=== PATIENT | male | born 1990 | race Caucasian/White ===

== ENCOUNTER 2019-12-03 14:52 | Emergency (ER) | payer OTHER, SELFPAY ==
--- NOTE | ~2019-12-03 | XR_ITS ---
XR knee RT min 4V DATE: 12/03/2019 15:28 INDICATION: Medial right knee pain TECHNIQUE: 4 views COMPARISON: None FINDINGS: A crosstable lateral view is oblique and not optimally for evaluation of joint effusion. Nicholson prapatellar knee joint effusion is suspected. Repeat true lateral and crosstable lateral view is antonio mmended. No fracture or dislocation, periosteal reaction or bone destruction, radiopaque intra-articular loose body or chondrocalcinosis is detected. There is periarticular spurring of the patella and minimal periarticular spurring at the lateral comp artment. There is mild loss of height of medial compartment joint space. IMPRESSION: Recommend true lateral repeat crosstable lateral view for confirmation of suspected knee joint effusion and to evaluate for any lipohemarthrosis (fat/fluid level) Tricompartment osteoarthritis Reviewed, dictated and finalized at location A. IMPRESSION: Recommend true lateral repeat crosstable lateral view for confirmat ion of suspected knee joint effusion and to evaluate for any lipohemarthrosis ( fat/fluid level) Tricompartment osteoarthritis
[2019-12-03 15:02] VITALS: BP 159/85; PULSE 99; RESP 16; TEMP 36.8; O2SAT 97
--- NOTE | 2019-12-03 15:37 | ED.LOWEXIN ---
HPI - Extremity Injury (Lower) General Chief Complaint: Extremity Injury, Lower Stated Complaint: right knee injury Time Seen by Provider: 12/03/19 15:38 Source: patient and RN notes reviewed Mode of arrival: ambulatory Limitations: no limitations History of Present Illness HPI Narrative: 29-year-old male who presents to [facility] with complaints of pain to his right knee since Friday. Patient states that he was getting off of forklift at work and felt a twinge in his right knee. He states that his pain has progressively gotten worse and increases with weight bearing, states that his right knee feels like it is going to buckle. Patient states that he has no tingling or numbness to his right foot or leg, pulses to right foot of good quality. He reports pain is inferior anteriorly and medially right patella. MD complaint: knee injury Onset (ago): day(s) (4th day) Injury: Right: knee (right) Type of Injury: hyperflexion Place: work Severity: severe Severity scale (1-10): 4 Relieving factors: rest Exacerbating factors: weight bearing Context: other (getting off of a forklift) Associated symptoms: swelling and other (pain especially with weight bearing) Other symptoms: none Treatments prior to arrival: cold therapy and NSAIDS Related Data Home Medications Medication Instructions Recorded Confirmed No Home Medications 12/03/19 12/03/19 Allergies Allergy/AdvReac Type Severity Reaction Status Date / Time No Known Allergies Allergy Mild Verified 12/03/19 15:22 Review of Systems Review of Systems: Narrative: CONSTITUTIONAL: Denies fever, chills, or sweats. EYES: Denies visual changes, redness, or discharge. ENT: Denies rhinorrhea, congestion, sore throat, or otalgia. CARDIOVASCULAR: Denies chest pain, palpitations, or edema. RESPIRATORY: Denies cough or dyspnea. GASTROINTESTINAL: Denies abdominal pain, nausea, vomiting, or diarrhea. GENITOURINARY: Denies dysuria or hematuria. SKIN: Denies rash or itching. MUSCULOSKELETAL: Denies back pain,positive for right knee joint pain, or myalgia. NEUROLOGIC: Denies headache, numbness, or weakness. PSYCHIATRIC: Denies anxiety or depression. All systems reviewed & are unremarkable except as noted in HPI and below PMFSH Past Medical History Medical History (Updated 12/03/19 @ 16:48 by Marianne Lou NP) Obesity Sleep apnea Tibia/fibula fracture Surgical History Surgical History (Updated 12/03/19 @ 15:55 by Marianne Lou NP) History of gastrointestinal surgery Family History Family History (Updated 12/03/19 @ 16:08 by Marianne Lou NP) Other Diabetes mellitus Social History Social History (Updated 12/03/19 @ 15:54 by Marianne Lou NP) Smoking status: Never smoker Living arrangements: with family Gender identity (if verbalized by the patient): Male Comments At time of signature, agree with nursing past medical, surgical, social history. There is no relevant family history pertinent to the presenting complaint Exam Narrative: Exam Narrative: GENERAL: Well-appearing, well-nourished, morbidly obese,and in no acute distress. HEAD: Normocephalic, atraumatic. EYES: PERRLA and EOMI. ENT: Nares clear, no rhinorrhea or epistaxis. Mucous membranes moist. NECK: Supple.no lymphadenopathy CHEST: Clear to auscultation. No respiratory distress.SAO2 97% on room air HEART: Regular rate and rhythm. No murmur heard. Normal peripheral pulses. ABDOMEN: Soft, nontender, nondistended, normal active bowel sounds. EXTREMITIES: Normal range of motion. No edema; with exception of pain swelling, decreased mobility to right knee. Patient is unable to fully bend his right knee, has buckling sensation to his right knee.pain anterior and medial aspect of his right knee. Patient states tightness feeling in his distal quad, no warmth or redness to his right knee. SKIN: Warm, dry, no rash. NEURO: No focal deficits. Alert and oriented x3. Course Vital Signs Vital signs
--- NOTE | 2019-12-03 17:52 | PC.NURSE ---
PT DECLINED WHEELCHAIR TO RADIOLOGY
== END 2019-12-03 16:55 | disposition home or self-care (01) ==
PROVIDERS: Emergency Provider Registered Nurse; PCP Family Medicine
DX: M25.461 Effusion, right knee (principal); M17.11 Unilateral primary osteoarthritis, right knee; E66.9 Obesity, unspecified; Z68.44 Body mass index [BMI] 60.0-69.9, adult
CPT/HCPCS: 73564; 99203; 99213; G0463